=== PATIENT | male | born 1935 | race Caucasian/White ===

== ENCOUNTER 2017-07-08 08:40 | Emergency (ER) | payer MEDICARE, OTHER ==
[~2017-07-08] VITALS: Wt 77.2 kg
--- NOTE | 2017-07-08 09:59 | RADRPT ---
PROCEDURE: CT Brain without contrast. CLINICAL INDICATION: Fall, injury. TECHNIQUE: A CT of the brain was performed on a GE CT scanner utilizing axial imaging from the sku ll base through the vertex without intravenous contrast. Multiplanar reformatted images were made. The CTDIvol is 42.69 mGy and the DLP is 720.23 mGycm. One or more of the following dose reduction techniques were used: - Automated exposure control. - Adjustment of the mA and/or kV according to patient size. - Use of iterative reconstruction technique. COMPARISON: None. FINDINGS: A left frontotemporal scalp hematoma is present without calvarial fracture. This. Supraorbital soft tissue swelling is noted. There is no intracranial hemorrhage, mass effect, or midline shift. No extra-axial fluid collectio n is seen. Mild generalized parenchymal volume loss is identified. There is no evidence of hydrocep halus . Mild decreased attenuation is seen in the periventricular and deep white matter, compatible with microvascular ischemic disease. The yoder white matter differentiation is well preserved with no acute infarct detected. The osseous structures are unremarkable. Slight mucosal thickening is present within the bilateral anterior ethmoid sinuses. Senescent calcifications of the bilateral lateral ocular globes is present . IMPRESSION: 1. Left frontotemporal scalp hematoma without calvarial fracture. 2. No acute post traumatic related intracranial pathology. 3. Mild generalized parenchymal volume loss. 4. Mild microvascular white matter ischemic disease. 5. Minimal paranasal sinus disease. RPTAT: HRSR Physician Alex Date Time Electronically viewed and signed by Physician Alex on 07/08/2017 09:58 RR/
[2017-07-08] MEDS ORDERED: ASPI81TA3 PO (10:13)
--- NOTE | 2017-07-08 10:14 | RADRPT ---
PROCEDURE: CT Cervical Spine without contrast. CLINICAL INDICATION: Fall, injury. TECHNIQUE: A CT of the cervical spine was performed on a GE CT scanner utilizing thin section axia l images from the skull base through the thoracic inlet. Sagittal and coronal reformatted images we re made. The CTDIvol is 22.36 mGy and the DLP is 628.52 mGycm. One or more of the following dose reduction techniques were used: - Automated exposure control. - Adjustment of the mA and/or kV according to patient size. - Use of iterative reconstruction technique. COMPARISON: No prior studies are available for comparison. FINDINGS: There is degenerative straightening of the normal lordosis. No acute fracture or subluxation. There is calcification of the retro dental cruciate ligament on axial image 52. Mild leftward lower cervic al tilt is noted. C2-3: Mild disc space narrowing. A 2.0 mm central disc protrusion is present. There is no central ca nal stenosis or foraminal narrowing. C3-4: There is severe disc space loss. No significant disk bulge or protrusion is evident. Mild bila teral uncovertebral degenerative changes are present. 2 mm left central calcification is present. Th ere is no central canal stenosis or foraminal narrowing. C4-5: There is mild disc space loss. No significant disk bulge or protrusion is evident. 3 mm broad- based disc protrusion is present central and left central on axial image 101. Mild to moderate right facet joint arthropathy is present. There is no central canal stenosis or foraminal narrowing. C5-6: Moderate disc space loss with vacuum disc. Broad-based osteophyte ridging measuring up to 3.5 mm is present. There is no central canal stenosis or foraminal narrowing. C6-7: Severe disc space loss. Broad-based disc osteophyte ridge measures 3.5 mm. Mild bilateral unc overtebral degenerate changes . There is no central canal stenosis or foraminal narrowing. C7-T1: Moderately severe disc space loss. No significant disk bulge or protrusion is evident. There is no central canal stenosis or foraminal narrowing. IMPRESSION: 1. No acute fracture or subluxation . 2. Degenerative straightening of the normal cervical lordosis. 3. C2-C3: 2 mm central disc protrusion. 4. C4-C5: 3 mm broad-based disc protrusion. 5. C5-6: 3.5 mm broad-based disc osteophyte ridge. 6. C6-C7: 3.5 mm broad-based disc osteophyte ridge. RPTAT: HRSR Physician Alex Date Time Electronically viewed and signed by Ashlie Meza Physician on 07/08/2017 10:13 RR/
[2017-07-08] MEDS ORDERED: LIDOCAINE 1%/EPI 30 ML INJ INJ STA (10:27)
--- NOTE | 2017-07-08 10:30 | ERD ---
ER Documentation Chief Complaint Chief Complaint LAC ON FOREHEAD S/P MECH FALL, NO KO HPI This is a 81-year-old male who presents to the emergency department after he had a mechanical ground-level fall just prior to arrival. The patient was moving trash cans when he slipped and fell and landed on trashcan lid hitting the left side of his head. The patient had a brief transient loss of consciousness. He stated there was a significant amount of bleeding from the laceration to the left side of his head but the bleeding resolved with a pressure dressing. He was brought into the emergency department by his son. He complains of mild neck pain that is exacerbated with movement but denies any numbness or tingling of his upper or lower extremities. He has had no fevers or shaking or chills. He complains of headache localized to the left side of his head. He was able to ambulate without any difficulty. ROS All systems reviewed and are negative except as per history of present illness. Medications Home Meds Reported Medications Aspirin* (Aspirin* Chew) 81 Mg Tab.chew, 81 MG PO DAILY, TAB.CHEW 07/08/17 Allergies Allergies: Coded Allergies: No Known Allergy (Unverified , 07/08/17) PMhx/Soc Medical and Surgical Hx: pt denies Medical Hx History of Surgery: Yes (CATARRACT) Hx Alcohol Use: No Hx Substance Use: No Hx Tobacco Use: No Smoking Status: Former smoker Physical Exam Vitals Vital Signs Date Time Temp Pulse Resp B/P Pulse Ox O2 Delivery O2 Flow Rate FiO2 07/08/17 11:20 70 17 166/81 98 07/08/17 10:35 77 17 179/96 98 07/08/17 08:47 98.3 76 17 167/90 98 Physical Exam Constitutional:Well-developed. Well-nourished. HEENT:Normocephalic. Left frontal scalp hematoma with 7 cm laceration on the left forehead above the left eyebrow and no involvement of the calvarium.Pupils were equal round reactive to light. Moist mucous membranes.No tonsillar exudates. No periorbital swelling or tenderness. No tenderness over the zygomatic arc. No midface mobility Neck: No nuchal rigidity. No lymphadenopathy. Posterior cervical spine tenderness C3-C4 with no step-offs. Respiratory: Not using accessory muscles of respiration.Lungs were clear to auscultation bilaterally. No rhonchi. No rales. No wheezing. Cardiovascular: Regular rate regular rhythm.No murmurs. No rubs were appreciated.S1, S2 normal. Distal pulses are palpable 2+ bilaterally. GI: Abdomen was soft. Nontender. Non Distended. No pulsatile abdominal masses or bruits. No rebound. No guarding. Bowel sounds were present and normal. Muscle skeletal: Full range of motion of both the upper and lower extremities bilaterally.Normal muscle tone.No assymetrical calf tenderness or swelling. Skin: No petechia, no purpura. No lesions on the palms or the soles of the feet. No maculopapular rash. NEURO: Patient was alert, awake, orientated x3.No facial droop. Gait observed and normal with no ataxia.Speech had regular rate and rhythm. No focal neurological deficits. Results 24 hrs Current Medications Medications (Trade) Dose Ordered Sig/Cindy Route PRN Reason Start Time Stop Time Status Last Admin Dose Admin Lidocaine/ Epinephrine (Xylocaine 1%/ Epi (Pf)) 30 ml ONCE STAT INJ 07/08/17 10:27 07/08/17 10:29 DC Clonidine (Catapres) 0.1 mg ONCE ONCE PO 07/08/17 11:30 07/08/17 11:31 DC 07/08/17 11:38 Procedures/MDM This patient presented to the emergency department with a laceration to the left forehead after mechanical fall. CT scan of the head was obtained due to brief transient loss of consciousness and mechanism of injury. Utilizing the Nexus criteria radiographic imaging was obtained of the cervical spine. There is no acute fractures of the cervical spine and no calvarium fractures. CT scan of the head reviewed by the radiologist myself indicated the followin. Left frontotemporal scalp hematoma without calvarial fracture. 2. No acute post traumatic related intracranial pathology. 3. Mild generalized parenchymal volume loss. 4. Mild microvascular white matter ischemic disease. 5. Minimal paranasal sinus disease. Procedure note: Patient's wound was irrigated using high-pressure normal saline after anesthetized with lidocaine with epinephrine, 4 cc. 4-0 Ethilon was used to oppose the wound and a total of 10 simple interrupted sutures were placed. Hemostasis controlled. Topical antimicrobial gel was applied to the wound as well as a dressing. Wound length after repair was 6.5 cm. This patient presented to the emergency department with severely elevated blood pressure. My differential diagnosis included but was not limited to conditions that could end-organ damage such as acute coronary syndrome, acute pulmonary edema, aortic dissection, subarachnoid hemorrhage, intracerebral hemorrhage, cerebral infarction, withdrawal syndromes from beta blockers, or states of catecholamine excess such as pheochromocytoma or drug intoxication. No signs of endorgan damage to suggest hypertensive emergency or urgency and I did feel his blood pressure was elevated due to the closed head injury. He received clonidine p.o. in the emergency department with resolution of his blood pressure The patient was discharged home in fair condition. They were instructed to return to the emergency department at any time if there was any worsening of their condition. The patient stated they would follow up with their PCP in the next 24-48 hours to initiate a suitable medication regimen under the care of their PCP as well as to allow their PCP to monitor any drug reactions. The patient was discharged home with prescriptions after they gave informed consent to the new medication. They were also fully informed by myself on the adverse effects and adverse drug interactions in order to provide adequate safeguards to prevent possible adverse reactions to medications. Departure Diagnosis: Primary Impression: Laceration Additional Impression: Closed head injury with brief loss of consciousness Condition: ARCELIA Nunn Jul 08, 2017 10:30
[2017-07-08 11:20] VITALS: BP 166/81; PULSE 70; RESP 17
== END 2017-07-08 11:48 | disposition home or self-care (01) ==
LOC: E/R 08:40
DX: S06.0X1A Concussion with loss of consciousness of 30 minutes or less, initial encounter (principal); R40.2142 Coma scale, eyes open, spontaneous, at arrival to emergency department; R40.2252 Coma scale, best verbal response, oriented, at arrival to emergency department; R40.2362 Coma scale, best motor response, obeys commands, at arrival to emergency department; W01.198A Fall on same level from slipping, tripping and stumbling with subsequent striking against other object, initial encounter; Y92.9 Unspecified place or not applicable; Z87.891 Personal history of nicotine dependence
CPT/HCPCS: 70450; 72125